=== PATIENT | male | born 1985 | race Caucasian/White ===

== ENCOUNTER 2016-03-08 12:02 | Emergency (ER) ==
[2016-03-08 12:02] VITALS: BMI 29.8
[2016-03-08 12:08] VITALS: BP 121/81; TEMP 98.3
--- NOTE | 2016-03-08 12:21 | ED.PDOC ---
General ED Provider: Dr. MARITZA JENSEN JR Chief Complaint: Cough Stated Complaint: COUGH WITH CHEST CONGESTION FOR THE PAST THREE DAYS. DRY NON- PRODUCTIVE COUGH. FEVER OF 101.0 TWO NIGHT AGO. SINUS CONGESTION WITH HEADACHE[ End]98.3 79 18 95% 121/81. APPY 15 Time Seen by Physician: 12:20 Mode of Arrival: Walk-In Information Source: Patient Exam Limitations: No limitations Nursing and Triage Documentation Reviewed and Agree: No Review of Systems - Review Of Systems Constitutional: Reports: Fever, Malaise Eyes: Reports: No symptoms Ears, Nose, Mouth, Throat: Reports: Nose discharge Respiratory: Reports: Cough Cardiac: Reports: No symptoms GI: Reports: No symptoms : Reports: No symptoms Musculoskeletal: Reports: No symptoms Skin: Reports: No symptoms Neurological: Reports: No symptoms Endocrine: Reports: No symptoms Hematologic/Lymphatic: Reports: No symptoms All Other Systems: Other Past Medical History - Past Medical History Previously Healthy: Yes Endocrine: Reports: None Cardiovascular: Reports: None Respiratory: Reports: None Hematological: Reports: None Gastrointestinal: Reports: GERD Genitourinary: Reports: None, Kidney stones Neuro/Psych: Reports: None Musculoskeletal: Reports: None Cancer: Reports: None - Surgical History General Surgical History: Reports: Appendectomy - Family History Family History: Reports: None - Social History Smoking Status: Never smoker Hx Substance Use: No Alcohol Screening: None - Immunizations Tetanus Shot up to Date: Yes Physical Exam - Physical Exam Appearance: Well-appearing, No pain distress, Well-nourished Pain Distress: Mild Eyes: ANUM, EOMI, Conjunctiva clear ENT: Ears normal, Nose normal, Oropharynx normal Neck: Supple Respiratory: Airway patent, Breath sounds clear, Breath sounds equal, Respirations nonlabored Cardiovascular: RRR, Pulses normal, No rub, No murmur GI/: Soft, Nontender, No masses, Bowel sounds normal, No Organomegaly Musculoskeletal: Normal strength, ROM intact, No edema, No calf tenderness Skin: Warm, Dry, Normal color Neurological: Sensation intact, Motor intact, Reflexes intact, Cranial nerves intact, Alert, Oriented Critical Care Note - Critical Care Note Total Time (mins): 0 Course - Course Vital Signs: Temp Pulse Resp BP Pulse Ox 03/08/16 12:02 98.3 F 79 18 121/81 95 Departure - Departure Time of Disposition: 12:32 Disposition: HOME SELF-CARE Discharge Problem: URTI (acute upper respiratory infection) Instructions: Upper Respiratory Infection in Children (ED) Condition: Good Pt referred to PMD for follow-up: Yes Additional Instructions: increase fluids avid handling food with cough or fever antihistamine decongestant for congestion(ANY) cough medication to lessen irritation(ANY) Tylenol and Motrin for aches pain fever Prescriptions: Guaifenesin/Codeine Phosphate [Robitussin AC Syrup] 10 ml PO Q6H PRN #240 ml PRN Reason: Cough Loratadine/Pseudoephedrine [Claritin-D 12 Hour Tablet] 1 each PO BID PRN #60 tab.er.12h PRN Reason: Allergy Symptoms Allergies/Adverse Reactions: Allergies No Known Allergies Allergy (Unverified 03/08/16 12:08) Home Medications: Ambulatory Orders Guaifenesin/Codeine Phosphate [Robitussin AC Syrup] 10 ml PO Q6H PRN #240 ml Loratadine/Pseudoephedrine [Claritin-D 12 Hour Tablet] 1 each PO BID PRN #60 tab.er.12h 03/08/16
== END 2016-03-08 12:46 | disposition home or self-care (01) ==
LOC: ED 12:02
DX: J06.9 Acute upper respiratory infection, unspecified (principal)
CPT/HCPCS: 99282

== ENCOUNTER 2017-03-03 01:33 | Inpatient (IN) ==
[2017-03-03] MEDS ORDERED: DECADRON 4 MG/ML SDV IM STA (02:04)
[2017-03-03] MEDS ORDERED: TORADOL IM STA (02:04)
[2017-03-03] MEDS ORDERED: TORADOL ONE (02:06)
[2017-03-03] MEDS ORDERED: DECADRON 4 MG/ML SDV ONE (02:39)
--- NOTE | 2017-03-03 02:57 | CT ---
EXAM: CT of the cervical spine without contrast. HISTORY: Neck pain. PROCEDURE: Contiguous axial CT images of the cervical spine without contrast with coronal and sagitt al reformats. FINDINGS: There is normal alignment of the cervical vertebral bodies and facets. The vertebral body heights and intervertebral disc spaces are maintained. The C1-2 relationship is maintained. No pre vertebral soft tissue abnormalities. Impression: Negative CT of the cervical spine.
--- NOTE | 2017-03-03 03:02 | CT ---
EXAM: CT chest without intravenous contrast 03/03/2017. Sagittal and coronal reformatted images obt ained HISTORY: Chest pain COMPARISON: 01/24/2011 FINDINGS: The heart size appears within normal limits. There is no pericardial effusion. Atelectasis within the dependent aspect of both lungs. There is no pulmonary consolidation, effusion or pneumothorax. There is bony fusion at the T10 and T11 vertebral bodies.. No acute osseous abnormality. IMPRESSION: 1. Atelectasis. 2. No acute superimposed cardiopulmonary process within the limitation of a noncontrast enhanced exa mination.
--- NOTE | 2017-03-03 03:17 | ED.PDOC ---
General ED Provider: Dr. RAJ LUNDBERG-ER Chief Complaint: Chest Pain Stated Complaint: it hurts into my neck and my left arm Time Seen by Physician: 01:40 Mode of Arrival: Walk-In Information Source: Patient Exam Limitations: No limitations Nursing and Triage Documentation Reviewed and Agree: Yes Reviewed sepsis parameters & appropriate labs ordered?: Yes System Inflammatory Response Syndrome: Not Applicable Sepsis Protocol: For patient's 13 years and over: Temp is 96.8 and below OR 101 and greater Pulse >90 BPM Resp >20/minute Acutely Altered Mental Status Are patient's symptoms suggestive of a new infection, such as: -Pneumonia -Skin, Soft Tissue -Endocarditis -UTI -Bone, Joint Infection -Implantable Device -Acute Abdominal Infection -Wound Infection -Meningitis -Blood Stream Catheter Infection -Unknown Cardiovascular Complaint Exam - Chest Pain Complaint/Exam Onset: Gradual Duration: 12 hrs Symptoms Are: Still present Timing: Constant Initial Severity: Mild Current Severity: Mild Location: Reports: Discrete Pain Radiates: Reports: Left arm, Jaw, Neck Character: Reports: Dull, Aching, Sharp Alleviating: Reports: None Associated Signs and Symptoms: Denies: Diaphoresis, Nausea, Vomiting, Fever, Palpitations, Cough, Hemoptysis, Back pain, Abdominal pain, Dizziness, Short of air, Calf pain, Calf swelling Related Surgical History: Reports: None History of Healthcare-Acquired Pneumonia: Reports: No TAD Risk Factors: Reports: None Prior Care for this Complaint: No Recent Stress Test: No Recent Echo/LV Function: No JVD Present: No Subcutaneous Emphysema Present: No Diminshed Breath Sounds: No Reproducible Chest Wall Pain: No Bilateral Pulses Present: Yes Unequal Pulses Noted: No Differential Diagnoses: Acute TN, ACS Quality Indicator For Non-Traumatic Chest Pain/Syncope: EKG Performed Review of Systems - Review Of Systems Constitutional: Reports: No symptoms Eyes: Reports: No symptoms Ears, Nose, Mouth, Throat: Reports: No symptoms Respiratory: Reports: No symptoms Cardiac: Reports: Chest pain GI: Reports: No symptoms : Reports: No symptoms Musculoskeletal: Reports: No symptoms Skin: Reports: No symptoms Neurological: Reports: No symptoms Endocrine: Reports: No symptoms Hematologic/Lymphatic: Reports: No symptoms All Other Systems: Reviewed and Negative Past Medical History - Past Medical History Previously Healthy: Yes Endocrine: Reports: None Cardiovascular: Reports: None Respiratory: Reports: None Hematological: Reports: None Gastrointestinal: Reports: GERD Genitourinary: Reports: None, Kidney stones Neuro/Psych: Reports: None Musculoskeletal: Reports: None Cancer: Reports: None - Surgical History General Surgical History: Reports: Appendectomy - Family History Family History: Reports: None - Social History Smoking Status: Never smoker Hx Substance Use: No Alcohol Screening: None Lives: With family - Immunizations Tetanus Shot up to Date: Yes Physical Exam - Physical Exam Appearance: Well-appearing, No pain distress, Well-nourished Pain Distress: Mild Eyes: ANUM, EOMI, Conjunctiva clear ENT: Ears normal, Nose normal, Oropharynx normal Neck: Supple Respiratory: Airway patent Cardiovascular: RRR, Pulses normal, No rub, No murmur GI/: Soft, Nontender, No masses, Bowel sounds normal, No Organomegaly Musculoskeletal: Normal strength, ROM intact, No edema, No calf tenderness Skin: Warm, Dry, Normal color Neurological: Sensation intact Psychiatric: Affect appropriate, Mood appropriate, Anxious Interpretation - Radiology Interpretation Radiology Interpretation By: Radiologist Radiology Results: Negative Exam Interpreted: CT Scan - EKG Interpretation Time of EKG #1: 03:16 Rate: Normal Rhythm: Sinus Ectopy: None Donner: NL ST Segment: Normal Re-Evaluation - Re-Evaluation Time of Re-Evaluation: 03:16 Status: Improved Vital Signs Stable: Yes Pain Level: 1 Appearance: NAD Lungs: Clear Skin: Warm and Dry Neuro: Alert and Oriented X3 CV: RRR Physician Notification - Case Discussed Physician Notified: dr lantigua 3:30 Time of Notification: 03:29 Critical Care Note - Critical Care Note Total Time (mins): 0 Course - Course Hematology/Chemistry: 03/03/17 02:05 03/03/17 02:05 Orders, Labs, Meds: Lab Review 03/03/17 03/03/17 02:05 02:05 WBC 12.31 H RBC 4.74 Hgb 14.7 Hct 43.0 MCV 90.7 MCH 31.0 MCHC 34.2 RDW Coeff of Roberto 12.9 Plt Count 231 Immature Gran % (Auto) 0.2 Neut % (Auto) 52.5 Lymph % (Auto) 35.7 Lewis % (Auto) 8.2 Eos % (Auto) 2.3 Baso % (Auto) 1.1 Immature Gran # (Auto) 0.0 Neut # 6.5 Lymph # 4.4 H Lewis # 1.0 Eos # 0.3 Baso # 0.1 Sodium 140 Potassium 3.7 Chloride 108 H Carbon Dioxide 24 Anion Gap 11.7 BUN 13 Creatinine 1.01 Estimated GFR (MDRD) 86.00 BUN/Creatinine Ratio 12.87 Glucose 112 H Calcium 8.9 Total Bilirubin 0.5 AST 23 ALT 51 Alkaline Phosphatase 56 Total Creatine Kinase 84 Troponin I < 0.0100 Total Protein 6.7 Albumin 3.7 Globulin 3.0 Albumin/Globulin Ratio 1.23 Orders Category Date Time Status EKG-(ED ONLY) Stat CARDIO 03/03/17 02:03 Completed CBC W/ AUTO DIFF Stat LAB 03/03/17 02:05 Completed COMPREHENSIVE METABOLIC PANEL Stat LAB 03/03/17 02:05 Completed CREATINE KINASE Stat LAB 03/03/17 02:05 Completed TROPONIN I Stat LAB 03/03/17 02:05 Completed Dexamethasone 4 mg/ml Inj [Decadron 4 mg/ml Sdv] MEDS 03/03/17 02:39 Discontinued 4 mg .ROUTE .STK-MED ONE Dexamethasone 4 mg/ml Inj [Decadron 4 mg/ml Sdv] MEDS 03/03/17 02:04 Discontinued 4 mg IM ONCE STA Ketorolac Tromethamine [Toradol] MEDS 03/03/17 02:06 Discontinued 60 mg .ROUTE .STK-MED ONE Ketorolac Tromethamine [Toradol] MEDS 03/03/17 02:04 Discontinued 60 mg IM ONCE STA CT CERVICAL SPINE W/O CONTRAST Stat RADS 03/03/17 02:[address] CHEST W/O CONTRAST Stat RADS 03/03/17 02:04 Completed Medications Discontinued Medications Generic Name Dose Route Start Last Admin Trade Name Freq PRN Reason Stop Dose Admin Dexamethasone Sodium Phosphate 4 mg 03/03/17 02:04 03/03/17 02:27 Decadron 4 Mg/Ml Sdv IM 03/03/17 02:05 4 mg ONCE STA Administration Ketorolac Tromethamine 60 mg 03/03/17 02:04 03/03/17 02:27 Toradol IM 03/03/17 02:05 60 mg ONCE STA Administration Vital Signs: Temp Pulse Resp BP Pulse Ox 03/03/17 01:34 97.1 F L 73 18 123/84 96 FER Risk Score FER Risk Score: Risk Score Odds of by 30D 0 0.1 (0.1-0.2) 1 0.3 (0.2-0.3) 2 0.4 (0.3-0.5) 3 0.7 (0.6-0.9) 4 1.2 (1.0-1.5) 5 2.2 (1.9-2.6) 6 3.0 (2.5-3.6) 7 4.8 (3.8-6.1) Departure - Departure Time of Disposition: 03:30 Disposition: ADMITTED INPATIENT Discharge Problem: Chest pain Instructions: Chest Pain (ED) Condition: Good Pt referred to PMD for follow-up: Yes IPMP verified?: No Allergies/Adverse Reactions: Allergies No Known Allergies Allergy (Verified 03/03/17 01:46) Home Medications: Ambulatory Orders Famotidine/Ca Carb/Mag Hydrox [Pepcid Complete Tablet Chew] 1 each PO BID PRN Lansoprazole [Prevacid] 15 mg PO DAILY PRN 03/03/17 Disposition Discussed With: Patient
[2017-03-03 04:26] VITALS: BMI 31.1
[2017-03-03] MEDS ORDERED: ZOFRAN 4 MG/2 ML IVP PRN (04:53)
[2017-03-03] MEDS ORDERED: MORPHINE 4 MG/ML VIAL IVP PRN (04:55)
[2017-03-03] MEDS ORDERED: TYLENOL PO PRN (05:03)
[2017-03-03] MEDS ORDERED: GI COCKTAIL PO PRN (05:42)
[2017-03-03] MEDS ORDERED: CARAFATE PO SCH ×2 (06:30→11:00)
[2017-03-03 10:52] VITALS: BP 114/69; TEMP 98.2
--- NOTE | 2017-03-09 11:56 | SSS ---
DATE OF SERVICE: 03/03/17 CHIEF COMPLAINT: Chest pain HISTORY OF PRESENT ILLNESS: The patient started this morning with achy pain on the left side of the neck down to the elbow and hand with slight tingling to the elbow and hand. Otherwise, the pain was getting worse and tightness. The patient came to the emergency room for the evaluation and the treatment and he was seen by Dr. Hanson in the emergency room. White count with a left shift with .31. First set of cardiac enzymes were negative. Toxicology screen was negative. At that time in view of the chest pain, the patient was admitted to observation to rule out acute coronary syndrome. EKG did not show any ST-T wave changes, but the patient was admitted to observation to rule out acute coronary syndrome. REVIEW OF SYSTEMS: CONSTITUTIONAL: No night sweats. Weakness, tiredness. No fever or chills. HEENT: Eyes: No visual changes. No eye pain. No eye discharge. ENT: No runny nose. No epistaxis. No sinus pain. No sore throat. No odynophagia. No ear pain. No congestion. RESPIRATORY: No cough, no congestion. No hemoptysis. No shortness of breath. CARDIOVASCULAR: No angina symptoms. No CHF symptoms. Left sided chest pain. No palpitations. No orthopnea. GASTROINTESTINAL: No abdominal pain. No nausea or vomiting. No diarrhea or constipation. No hematemesis. No hematochezia. GENITOURINARY: No dysuria. No hematuria. No obstructive symptoms. No discharge. No pain. No significant abnormal bleeding. MUSCULOSKELETAL: No musculoskeletal pain. No joint swelling. NEUROLOGICAL: Awake, alert, oriented to time, place and person. No headache. No neck pain. No syncope. No seizures. No dizziness. PSYCHIATRIC: Not anxious. No depression. No suicidal thoughts. No homicidal thoughts. SKIN: No rash. No lesions. No wounds. ENDOCRINE: No unexplained weight loss. No weight gain. HEMATOLOGIC/LYMPHATIC: No anemia. No purpura. No petechiae. No prolonged or excessive bleeding. No palpable lymph nodes. PAST HISTORY: History of irregular rhythm, no medication. PAST SURGICAL HISTORY: Appendectomy PERSONAL HISTORY: Does not smoke or drink. FAMILY HISTORY: Significant for the diabetes and lung cancer. ALLERGIES: No known drug allergies. HOME MEDICATIONS: Prevacid and Pepcid LABS: Sodium 140, potassium 3.7, chloride 108, bicarb 24, BUN 13, creatinine 1.01, glucose 112. Two sets of cardiac enzymes were negative. White count 12.31, hemoglobin 14.7, hematocrit 43.0, platelet count 231. PHYSICAL EXAMINATION: GENERAL: Weakness, tiredness. HEENT: Head normocephalic, atraumatic. Eyes: Extraocular muscles are intact. Pupils are equal, round and reactive to light and accommodation. Ears: No lesions. Nose appeared normal. Throat: No exudate or erythema. NECK: Supple. No JVD, no carotid bruit. No lymphadenopathy or thyromegaly. LUNGS: Clear to auscultation. Percussion note normal. Chest symmetrical. HEART: S1, S2, no S3. No murmurs. No cyanosis or clubbing. No ascites. Pulses: Dorsalis pedis and posterior tibial pulses +1 to +2 both sides. Left sided chest pain. ABDOMEN: Soft. Nontender. Bowel sounds active. No CVA tenderness. No mass felt. EXTREMITIES: No edema. Full range of motion of all extremities, equal. NEUROLOGIC: No focal deficit. Cranial nerves II through XII are grossly intact. No headache, no double vision or headache. SKIN: Not dry. Intact. Turgor - normal. LYMPHATIC: No palpable lymph nodes/no lymphedema. MUSCULOSKELETAL: Normal joints with no swelling. Muscle tone is normal. ASSESSMENT: 1. CHEST PAIN, RULE OUT ACUTE CORONARY SYNDROME 2. PEPTIC ULCER DISEASE 3. 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 FAMILY HISTORY OF CORONARY ARTERY DISEASE BRIEF HOSPITAL COURSE: The patient was admitted to the hospital and started on a dose of Decadron. Morphine every 12 hours prn was given. Zofran was given. Carafate was given. The patient stayed up until 11:40 in the morning and by that time the patient was feeling better. At that time he desired that he has to leave against medical advise. The patient was feeling better with the medication. The patient started saying that he wanted to leave against medical advise, as the patient has to take the kids to the game, but he did talk to me and the patient is being discharged to home. I did come and examine the patient. I did clearly explain to the patient that he has to come and see me within 3 to 4 days in the [facility] so that we can schedule outpatient stress test and echocardiogram. Even though the EKG and the cardiac enzymes are negative, it can still be a heart attack, but given the patient's symptoms with left sided chest pain and radiating to the left arm. The patient verbalized understanding and promised that he will be coming to the office for the follow up. Currently, the patient is waiting for his to come and pick him up. PLAN: 1. The patient signed an AMA. 2. Lifestyle modification and weight loss and diet control were discussed. Verbalized understanding. TIME SPENT: More than 75 minutes. LORA
== END 2017-03-03 11:40 | disposition home or self-care (01) | DRG 313 ==
LOC: ED 01:33 → SCU 03:31
PROVIDERS: ADMIT Emergency Medicine; ATTEND Emergency Medicine
DX: R07.9 Chest pain, unspecified (principal); R68.84 Jaw pain; M54.2 Cervicalgia; R20.2 Paresthesia of skin; Z86.79 Personal history of other diseases of the circulatory system; Z82.49 Family history of ischemic heart disease and other diseases of the circulatory system
CPT/HCPCS: 36415; 80053; 80306; 82550; 84484; 85025; 93005; 93010; 96372; 99284

== ENCOUNTER 2018-05-17 17:02 | Outpatient (CLI) | END 2018-05-17 17:03 | disposition home or self-care (01) | LOC: LAB 17:02 | PROVIDERS: ATTEND General Practice | DX: H57.89 Other specified disorders of eye and adnexa (principal); H57.11 Ocular pain, right eye | CPT/HCPCS: 87070 ==